=== PATIENT | female | born 1960 | race Two or more races ===

== ENCOUNTER 2024-06-08 07:47 | Inpatient (IN) | payer BC ==
[~2024-06-08] VITALS: Ht 165.1 cm; Wt 119.5 kg
[~2024-06-08 07:47] MED LIST: CITA10TA8 PO; DICL75TA3 PO; HYDR25TA4 PO; TRAM50TA2 PO
[2024-06-08] MEDS: ROPIVACAINE 0.5% (5MG/ML) 20ML AMPULE IJ ONE ×2 (08:17→10:52)
[2024-06-08] MEDS ORDERED: MIDAZOLAM HCL 2MG/2ML 2ml VIAL (1mg/ml) ONE (08:57)
[2024-06-08] MEDS ORDERED: fentaNYL CITRATE 100 MCG/2 ML VL ONE ×2 (08:57→10:13)
[2024-06-08] MEDS ORDERED: PROPOFOL 10 MG/ML 20 ML IV ONE ×2 (08:58→11:22)
[2024-06-08] MEDS: ceFAZolin 2 GM/D5W50ml 50 ML IV ONE (10:05)
[2024-06-08] MEDS: TRANEXAMIC ACID 20 ML ONE (10:45)
[2024-06-08] MEDS: EPINEPHrine HCL 1 MG/1 ML AMP ONE (10:52)
[2024-06-08] MEDS: VANCOMYCIN HCL 1000 MG VL ONE (10:52)
[2024-06-08] MEDS: CEFEPIME 1GM/ 50ML 50 ML IV ONE (10:53)
[2024-06-08] MEDS ORDERED: oxyCODONE HCL 5MG TAB PO PRN (13:00)
[2024-06-08] MEDS ORDERED: ACETAMINOPHEN 325 MG TAB PO PRN (13:00)
[2024-06-08 13:11] VITALS: O2SAT 96
[2024-06-08] MEDS ORDERED: ONDANSETRON HCL 4 MG/2 ML VIAL IV ONE (13:30)
[2024-06-08] MEDS ORDERED: HYDROmorphone HCL 2 MG/ML VL/or syr IV PRN (13:30)
[2024-06-08] MEDS: D5W/LACTATED RINGERS 1,000 ML IV SCH (14:10)
[2024-06-08] MEDS: ACETAMINOPHEN IV 1000 MG/100ML (10MG/ML) IV PRN (15:01)
[2024-06-08] MEDS: MEPERIDINE HCL (25 MG/ML) 1ML VIAL IV PRN (15:16)
[2024-06-08 16:08] VITALS: BP 114/60; PULSE 85; RESP 16; TEMP 98.1; O2SAT 98
[2024-06-08 17:00] VITALS: BP 129/70; PULSE 73; RESP 16; TEMP 98.1; O2SAT 98
[2024-06-08] MEDS ORDERED: ACETAMINOPHEN 325 MG TAB PO SCH (18:00)
[2024-06-08] MEDS: KETOROLAC TROMETH 30 MG/ML 1ML VIAL IV SCH (18:29)
[2024-06-08] MEDS: ceFAZolin 2 GM/D5W50ml 50 ML IV SCH (18:33)
[2024-06-08 20:30] VITALS: PULSE 72; RESP 18; O2SAT 91
[2024-06-08 21:00] VITALS: BP 128/59; PULSE 72; RESP 18; TEMP 97.1; O2SAT 91
[2024-06-08] MEDS: PREGABALIN 25 MG CAP PO SCH (21:42)
[2024-06-08 23:50] VITALS: BP 128/59; PULSE 72; RESP 18; TEMP 97.1; O2SAT 91
[2024-06-09 01:00] VITALS: BP 103/42; PULSE 74; RESP 18; TEMP 97.1; O2SAT 93
[2024-06-09 04:44] LABS: Basophils # (auto) 0 10 ^3/uL (0-0.2); Basophils % (auto) 0.4 % (0.0-2.0); Eosinophils # (auto) 0 10 ^3/uL (0-0.8); Eosinophils % (auto) 0.5 % (0.0-7.0); Hematocrit 35.8 % (36.0-46.0); Hemoglobin 12.8 g/dL (12.2-16.2); Lymphocytes # (auto) 1.8 10 ^3/uL (0.4-5.4); Lymphocytes % (auto) 22.9 % (10.0-50.0); Mean Corpuscular Hemoglobin 31.6 pg (28.0-32.0); Mean Corpuscular Hgb Conc. 35.7 g/dL (32.0-36.0); Mean Corpuscular Volume 88.7 fL (80.0-100.0); Monocytes # (auto) 0.8 10 ^3/uL (0-1.3); Monocytes % (auto) 10.1 % (0.0-12.0); Neutrophils # (auto) 5.3 10 ^3/uL (1.6-8.6); Neutrophils % (auto) 66.1 % (37.0-80.0); Platelet Count (auto) 206 10^3/uL (140-450); Red Blood Cells 4.04 10^6/uL (4.0-5.20); White Blood Cell 7.9 10^3/uL (4.4-10.8)
[2024-06-09] MEDS: oxyCODONE HCL 5MG TAB PO PRN (04:49)
[2024-06-09 04:52] LABS: Chloride 101 mmol/L (98-107); Potassium 3.1 mmol/L (3.5-5.1); Sodium 137 mmol/L (136-145)
[2024-06-09 04:53] LABS: Anion Gap 4 (5-15); Carbon Dioxide 32 mmol/L (20-30)
[2024-06-09 04:58] LABS: BUN/Creatinine Ratio 10.7 (10.0-20.0); Blood Urea Nitrogen 8 mg/dL (9-23); Glucose 120 mg/dL (74-106)
[2024-06-09 05:00] VITALS: BP 122/64; PULSE 72; RESP 18; TEMP 97.5; O2SAT 92
[2024-06-09 09:00] VITALS: BP 100/60; PULSE 73; RESP 14; TEMP 97.9; O2SAT 95
[2024-06-09] MEDS: POTASSIUM CHL 20 Meq TABLET PO ONE (12:01)
[2024-06-09] MEDS: ASPirin 81 mg TAB PO SCH (12:02)
[2024-06-09] MEDS: CITALOPRAM HYDROBR 20 MG TAB PO SCH (12:03)
[2024-06-09] MEDS: hydroCHLOROthiazide 25 MG TAB PO SCH (12:03)
[2024-06-09 13:00] VITALS: BP 122/52; PULSE 75; RESP 18; TEMP 98; O2SAT 18
[2024-06-09 17:00] VITALS: BP 107/46; PULSE 73; RESP 18; TEMP 98; O2SAT 96
[2024-06-09 17:03] VITALS: BP 122/52
== END 2024-06-09 18:16 | disposition home health service (06) | DRG 470 ==
LOC: SUR 07:47 → EDBD 09:15 → OVERFLOW 12:51 → CENTRAL 15:45
PROVIDERS: ADMIT Orthopaedic Surgery; ATTEND Orthopaedic Surgery
PROC: 0SRC069 Replacement of Right Knee Joint with Oxidized Zirconium on Polyethylene Synthetic Substitute, Cemented, Open Approach (ICD-10-PCS; principal; 2024-06-08 10:05)
DX: M17.11 Unilateral primary osteoarthritis, right knee (principal); E87.6 Hypokalemia; F41.9 Anxiety disorder, unspecified; I10 Essential (primary) hypertension; Z82.49 Family history of ischemic heart disease and other diseases of the circulatory system; Z83.3 Family history of diabetes mellitus; Z80.8 Family history of malignant neoplasm of other organs or systems
CPT/HCPCS: 36415; 73560; 80048; 85025; 86850; 86900; 86901; 97116; 97163; 97530; G0378; J0131; J0171; J1885; J2250; J2704